=== PATIENT | female | born 1945 | race Caucasian/White ===

== ENCOUNTER 2021-02-10 19:17 | Emergency (ER) | payer BC, MEDICARE, OTHER ==
[~2021-02-10] VITALS: Ht 157.5 cm; Wt 88.6 kg
[2021-02-10] MEDS ORDERED: METO200T28 PO (19:42)
[2021-02-10] MEDS ORDERED: AMLO1TAB24 PO (19:42)
[2021-02-10] MEDS ORDERED: PANT40TA29 PO (19:42)
[2021-02-10] MEDS ORDERED: SERT25TA21 PO (19:42)
[2021-02-10] MEDS ORDERED: ATOR1TAB21 PO (19:42)
[2021-02-10] MEDS ORDERED: BRIL90TA PO (19:42)
[2021-02-10] MEDS ORDERED: LISI20TA33 PO (19:42)
[2021-02-10] MEDS ORDERED: GABA-282 PO (19:42)
[2021-02-10] MEDS ORDERED: FURO20TA2 PO (19:42)
[2021-02-10] MEDS ORDERED: ELIQ5TAB PO (19:42)
[2021-02-10 23:19] VITALS: BP 152/82
== END 2021-02-10 23:23 | disposition home or self-care (01) ==
LOC: M ED 19:17
DX: H11.31 Conjunctival hemorrhage, right eye (principal); I10 Essential (primary) hypertension; K21.9 Gastro-esophageal reflux disease without esophagitis; I25.2 Old myocardial infarction; Z95.5 Presence of coronary angioplasty implant and graft; Z91.018 Allergy to other foods; Z79.899 Other long term (current) drug therapy; Z79.01 Long term (current) use of anticoagulants